=== PATIENT | male | born 1965 | race Hispanic/Latino ===

== ENCOUNTER 2022-08-31 09:19 | Day surgery (SDC) | payer BC ==
[2022-08-27 11:02] LABS: BASOPHILS % (AUTO) 0.4 % (0.0-5.0); EOSINOPHILS % (AUTO) 1.2 % (0.0-8.0); HEMATOCRIT 44.1 % (42-54); LYMPHOCYTES % (AUTO) 35.4 % (21.0-51.0); MEAN CORPUSCULAR HEMOGLOBIN 29.3 pg (27.0-33.0); MEAN CORPUSCULAR HGB CONC 32.7 g/dL (32.0-36.0); MEAN CORPUSCULAR VOLUME 89.8 fL (79-99); NEUTROPHILS % (AUTO) 54.7 % (40.0-77.0); PLATELET COUNT (AUTO) 207 K/uL (130-400); RED BLOOD CELL COUNT(AUTO) 4.91 MIL/uL (4.50-6.20); RED CELL DISTRIBUTION WIDTH 12.7 % (11.0-15.5); WHITE BLOOD COUNT (AUTO) 6.8 K/uL (4.8-10.8)
[2022-08-27 11:03] VITALS: BP 146/80
[2022-08-27 11:06] LABS: CREATININE 0.8 mg/dL (0.5-1.5); POTASSIUM 4.3 mmol/L (3.5-5.1)
[2022-08-27 11:26] LABS: B-TYPE NATRIURETIC PEPTIDE 9 pg/mL (0-100)
[2022-08-27 11:40] LABS: INR 0.93 (0.85-1.15); PROTHROMBIN TIME 9.9 SEC (9.6-11.6)
[2022-08-27 11:41] LABS: PARTIAL THROMBOPLASTIN TIME 29.6 SEC (26.3-35.5)
[~2022-08-31] VITALS: Ht 175.3 cm; Wt 100.7 kg
[2022-08-31] VITALS (8 sets, daily range): BP systolic 134–153; BP diastolic 74–86
[~2022-08-31 09:19] MED LIST: 0.9% NACL 500ML IV.SOLN 500 ML IV SCH
[2022-08-31] MEDS ORDERED: LISI20TA24 PO (11:12)
[2022-08-31] MEDS ORDERED: ASPI-1005 PO (11:12)
[2022-08-31] MEDS ORDERED: ROSU20TA73 PO (11:12)
[2022-08-31] MEDS ORDERED: CARV3.12 PO (11:12)
[2022-08-31] MEDS ORDERED: LIDOCAINE HCL 400MG/20ML VIAL ONE (12:54)
[2022-08-31] MEDS ORDERED: NITROGLYCERIN 50MG VIAL ONE (12:54)
[2022-08-31] MEDS ORDERED: IOHEXOL 350 MG/ML 100ML INFUS..BTL IV ONE ×2 (12:54→14:23)
[2022-08-31] MEDS ORDERED: HEPARIN 10,000 UNIT/10ML (1,000 UNIT/ML) VIAL ONE ×2 (12:54→14:12)
[2022-08-31] MEDS ORDERED: MIDAZOLAM HCL 1 MG/ML 2ML VIAL ONE (12:55)
[2022-08-31] MEDS ORDERED: FENTANYL CITRATE PF 50 MCG/1 ML 2ML VIAL ONE (12:55)
[2022-08-31] MEDS ORDERED: NICARDIPINE 25MG INJ IV ONE (13:01)
[2022-08-31] MEDS ORDERED: ASPIRIN 325MG EC TAB PO ONE (14:07)
[2022-08-31] MEDS ORDERED: CLOPIDOGREL 300MG TAB ONE (14:07)
[2022-08-31] MEDS ORDERED: 0.9%NACL 1000ML 1,000 ML IV SCH (15:00)
[2022-08-31] MEDS ORDERED: ACETAMINOPHEN 325 MG TAB ONE (16:55)
== END 2022-08-31 18:09 | disposition home or self-care (01) ==
LOC: DAH 09:19
PROVIDERS: ATTEND Internal Medicine Cardiovascular Disease
DX: I25.119 Atherosclerotic heart disease of native coronary artery with unspecified angina pectoris (principal); I25.82 Chronic total occlusion of coronary artery; I10 Essential (primary) hypertension; E78.5 Hyperlipidemia, unspecified; F17.210 Nicotine dependence, cigarettes, uncomplicated; E11.9 Type 2 diabetes mellitus without complications; I71.9 Aortic aneurysm of unspecified site, without rupture; Z82.49 Family history of ischemic heart disease and other diseases of the circulatory system; Z83.3 Family history of diabetes mellitus; Z72.89 Other problems related to lifestyle; Z79.82 Long term (current) use of aspirin; Z79.899 Other long term (current) drug therapy; Z86.16 Personal history of COVID-19; Z88.8 Allergy status to other drugs, medicaments and biological substances; Z79.01 Long term (current) use of anticoagulants
CPT/HCPCS: 80048; 83880; 85025; 85610; 85730; 36415; 71045; 93005 ×3; 93458; 93571; 85347; C9600; C1769 ×3; C1887 ×2; C1894 ×2; C1874; C1725 ×2; Q9965 ×2; J7040; J3010; J3490 ×3; J1644 ×4; J2250; Q9967; A4215; A4222; A4221; A4663; A4216; A4606; A4223 ×3; 99156; 99157

== ENCOUNTER 2022-09-02 17:52 | Observation (INO) | payer BC ==
[~2022-09-02] VITALS: Ht 175.3 cm; Wt 97.8 kg
[~2022-09-02 17:52] MED LIST changes: -0.9% NACL 500ML IV.SOLN 500 ML IV SCH; +ASPI-1005 PO; +CARV3.12 PO; +LISI20TA24 PO; +ROSU20TA31 PO
[2022-09-02 18:20] LABS: BASOPHILS % (AUTO) 0.5 % (0.0-5.0); EOSINOPHILS % (AUTO) 1.4 % (0.0-8.0); HEMATOCRIT 41.1 % (42-54); LYMPHOCYTES % (AUTO) 36.9 % (21.0-51.0); MEAN CORPUSCULAR HEMOGLOBIN 30.4 pg (27.0-33.0); MEAN CORPUSCULAR HGB CONC 34.8 g/dL (32.0-36.0); MEAN CORPUSCULAR VOLUME 87.3 fL (79-99); MONOCYTES % (AUTO) 9.9 % (3.0-13.0); NEUTROPHILS % (AUTO) 50.8 % (40.0-77.0); PLATELET COUNT (AUTO) 212 K/uL (130-400); RED BLOOD CELL COUNT(AUTO) 4.71 MIL/uL (4.50-6.20); RED CELL DISTRIBUTION WIDTH 12.6 % (11.0-15.5); WHITE BLOOD COUNT (AUTO) 6.3 K/uL (4.8-10.8)
[2022-09-02 18:31] LABS: CREATININE 0.9 mg/dL (0.5-1.5)
[2022-09-02 18:40] LABS: ALBUMIN 3.8 g/dL (3.5-5.0)
[2022-09-02 18:55] LABS: TOTAL PROTEIN, SERUM 7.2 g/dL (6.0-8.3)
[2022-09-02] MEDS ORDERED: ONDANSETRON 4MG INJ IVP ONE (19:30)
[2022-09-02] MEDS ORDERED: MORPHINE 2 MG SYG IVP ONE (19:30)
[2022-09-02] MEDS ORDERED: HEPARIN 25,000 UNITS/250ML D5W 250 ML IV SCH (19:30)
[2022-09-02 20:44] LABS: INR 0.93 (0.85-1.15)
[2022-09-02 20:46] LABS: PARTIAL THROMBOPLASTIN TIME 30.6 SEC (26.3-35.5)
[2022-09-02] MEDS ORDERED: HEPARIN 5,000 UNIT VIAL ONE (21:17)
[2022-09-02] MEDS ORDERED: MORPHINE 2 MG SYG IVP PRN (22:00)
[2022-09-02] MEDS ORDERED: HYDRALAZINE 20MG/ML VIAL IV PRN (22:00)
[2022-09-02] MEDS ORDERED: HYDROCODONE/ACETAMINOPHEN 5/325 MG TAB PO PRN (22:00)
[2022-09-02] MEDS ORDERED: LABETALOL 20MG SYG IV PRN (22:00)
[2022-09-02] MEDS ORDERED: ACETAMINOPHEN 325 MG TAB PO PRN (22:00)
[2022-09-03] VITALS (7 sets, daily range): BP systolic 115–155; BP diastolic 57–94
[2022-09-03] MEDS ORDERED: CLOP75TA32 PO (02:04)
[2022-09-03] MEDS: CLOPIDOGREL 75MG TAB PO SCH (10:00)
[2022-09-03] MEDS: ASPIRIN 81 MG EC TAB PO SCH (10:00)
[2022-09-03] MEDS ORDERED: HEPARIN 5,000 UNIT VIAL IV SCH (17:45)
[2022-09-03] MEDS: CARVEDILOL 3.125 MG TABLET PO SCH (20:56)
[2022-09-03] MEDS ORDERED: ATORVASTATIN 40 MG TABLET PO SCH (21:00)
[2022-09-04 03:53] LABS: HEMATOCRIT 44.3 % (42-54); MEAN CORPUSCULAR HEMOGLOBIN 29.1 pg (27.0-33.0); MEAN CORPUSCULAR VOLUME 88.2 fL (79-99); RED BLOOD CELL COUNT(AUTO) 5.02 MIL/uL (4.50-6.20); RED CELL DISTRIBUTION WIDTH 12.5 % (11.0-15.5)
[2022-09-04 04:13] LABS: MAGNESIUM 1.9 mg/dL (1.80-2.40); POTASSIUM 4.3 mmol/L (3.5-5.1)
[2022-09-04 05:39] VITALS: BP 141/80
[2022-09-04 07:00] VITALS: BP 144/84
[2022-09-04] MEDS: ASPIRIN 81 MG EC TAB PO SCH (07:48)
[2022-09-04] MEDS: CARVEDILOL 3.125 MG TABLET PO SCH (07:48)
[2022-09-04] MEDS: CLOPIDOGREL 75MG TAB PO SCH (07:49)
[2022-09-04] MEDS ORDERED: ISOSORBIDE MONO 30MG SR TAB PO ONE (10:00)
[2022-09-04 11:00] VITALS: BP 128/68
[2022-09-05] MEDS ORDERED: ISOSORBIDE MONO 30MG SR TAB PO SCH (09:00)
== END 2022-09-04 13:00 | disposition home or self-care (01) ==
LOC: EDH 17:52 → EDHIP 21:55 → 2AH 09-03 01:44
PROVIDERS: ADMIT Internal Medicine; ATTEND Internal Medicine
DX: I21.4 Non-ST elevation (NSTEMI) myocardial infarction (principal); I25.10 Atherosclerotic heart disease of native coronary artery without angina pectoris; I10 Essential (primary) hypertension; E78.00 Pure hypercholesterolemia, unspecified; F17.200 Nicotine dependence, unspecified, uncomplicated; R74.8 Abnormal levels of other serum enzymes; Z79.899 Other long term (current) drug therapy; Z95.5 Presence of coronary angioplasty implant and graft; Z63.4 Disappearance and death of family member; Z79.82 Long term (current) use of aspirin; Z98.890 Other specified postprocedural states
CPT/HCPCS: 96365; 96366 ×3; 82550; 83874; 84484 ×3; 80053; 85025; 85610; 85730 ×4; 36415 ×3; 71045; 99291; 93005 ×2; 96376 ×2; 83735; 80048; 85027; G0378 ×39; J1644 ×3; 96375

== ENCOUNTER 2022-09-17 05:58 | Day surgery (SDC) | payer BC ==
[2022-09-15 12:37] LABS: BASOPHILS % (AUTO) 0.5 % (0.0-5.0); EOSINOPHILS % (AUTO) 2.8 % (0.0-8.0); HEMATOCRIT 42.2 % (42-54); LYMPHOCYTES % (AUTO) 31.9 % (21.0-51.0); MEAN CORPUSCULAR HEMOGLOBIN 29.4 pg (27.0-33.0); MEAN CORPUSCULAR HGB CONC 33.4 g/dL (32.0-36.0); MEAN CORPUSCULAR VOLUME 87.9 fL (79-99); MONOCYTES % (AUTO) 9.8 % (3.0-13.0); NEUTROPHILS % (AUTO) 54.6 % (40.0-77.0); PLATELET COUNT (AUTO) 216 K/uL (130-400); RED CELL DISTRIBUTION WIDTH 12.5 % (11.0-15.5); WHITE BLOOD COUNT (AUTO) 5.7 K/uL (4.8-10.8)
[2022-09-15 12:53] LABS: CREATININE 0.7 mg/dL (0.5-1.5); POTASSIUM 4.5 mmol/L (3.5-5.1)
[2022-09-15 12:57] LABS: INR 0.93 (0.85-1.15); PROTHROMBIN TIME 9.8 SEC (9.6-11.6)
[2022-09-15 12:58] LABS: PARTIAL THROMBOPLASTIN TIME 29.6 SEC (26.3-35.5)
[2022-09-15 13:20] VITALS: BP 150/79
[~2022-09-17] VITALS: Ht 175.3 cm; Wt 100.0 kg
[2022-09-17] VITALS (9 sets, daily range): BP systolic 142–156; BP diastolic 68–81
[~2022-09-17 05:58] MED LIST changes: +0.9% NACL 500ML IV.SOLN 500 ML IV SCH; +CLOP75TA32 PO; -ROSU20TA31 PO; +ROSU20TA73 PO
[2022-09-17] MEDS ORDERED: 0.9%NACL 1000ML 1,000 ML IV ONE (06:22)
[2022-09-17] MEDS ORDERED: ISOS30TA92 PO (07:05)
[2022-09-17] MEDS ORDERED: HEPARIN 10,000 UNIT/10ML (1,000 UNIT/ML) VIAL ONE (07:19)
[2022-09-17] MEDS ORDERED: LIDOCAINE HCL 400MG/20ML VIAL ONE (07:19)
[2022-09-17] MEDS ORDERED: MIDAZOLAM HCL 1 MG/ML 2ML VIAL ONE ×2 (07:19→09:15)
[2022-09-17] MEDS ORDERED: NITROGLYCERIN 50MG VIAL ONE (07:19)
[2022-09-17] MEDS ORDERED: FENTANYL CITRATE PF 50 MCG/1 ML 2ML VIAL ONE ×2 (07:19→09:52)
[2022-09-17] MEDS ORDERED: NICARDIPINE 25MG INJ IV ONE (07:19)
[2022-09-17] MEDS ORDERED: IOHEXOL 350 MG/ML 100ML INFUS..BTL IV ONE (07:19)
[2022-09-17] MEDS ORDERED: IOHEXOL-350 75 ML VIAL IV ONE (09:23)
[2022-09-17] MEDS ORDERED: CLOPIDOGREL 300MG TAB ONE (10:29)
[2022-09-17] MEDS ORDERED: 0.9%NACL 1000ML 1,000 ML IV SCH (10:30)
== END 2022-09-17 14:40 | disposition home or self-care (01) ==
LOC: DAH 05:58
PROVIDERS: ATTEND Internal Medicine Cardiovascular Disease
DX: I25.119 Atherosclerotic heart disease of native coronary artery with unspecified angina pectoris (principal); I10 Essential (primary) hypertension; E78.5 Hyperlipidemia, unspecified; I71.9 Aortic aneurysm of unspecified site, without rupture; F17.210 Nicotine dependence, cigarettes, uncomplicated; I44.0 Atrioventricular block, first degree; Z86.16 Personal history of COVID-19; Z79.899 Other long term (current) drug therapy; Z98.890 Other specified postprocedural states; Z72.89 Other problems related to lifestyle; Z82.49 Family history of ischemic heart disease and other diseases of the circulatory system; Z83.3 Family history of diabetes mellitus; Z95.5 Presence of coronary angioplasty implant and graft; Z79.82 Long term (current) use of aspirin; Z79.01 Long term (current) use of anticoagulants
CPT/HCPCS: 80048; 85025; 85610; 85730; 36415; 71045; 93005 ×2; 85347 ×3; 82948 ×2; 92920; 93458; C9600; C1887 ×2; C1769 ×3; C1894 ×3; C1760; C1874 ×2; C1725 ×3; J3010 ×2; J3490 ×3; J7030; J1644 ×3; J2250 ×2; Q9967 ×2; A4215; A4222; A4221; A4663; A4216; A4606; C9601; Q9965 ×2; A4223 ×3; 96360; 96361; 96375; 99156; 99157

== ENCOUNTER → 2022-09-23 | Outpatient (CLI) | payer BC ==
[~2022-09-23] MED LIST changes: -0.9% NACL 500ML IV.SOLN 500 ML IV SCH; +ISOS30TA92 PO
== END | disposition home or self-care (01) ==
LOC: SHCH 12:39
PROVIDERS: ATTEND Internal Medicine Cardiovascular Disease
DX: M79.81 Nontraumatic hematoma of soft tissue (principal)
CPT/HCPCS: 93971

== ENCOUNTER 2023-03-22 16:18 | Observation (INO) | payer BC ==
[~2023-03-22] VITALS: Ht 175.3 cm; Wt 99.3 kg
[2023-03-22 16:58] LABS: BASOPHILS # (AUTO) 0.04 K/uL (0.00-0.20); BASOPHILS % (AUTO) 0.6 % (0.0-5.0); EOSINOPHILS # (AUTO) 0.16 K/uL (0.00-0.70); EOSINOPHILS % (AUTO) 2.4 % (0.0-8.0); HEMATOCRIT 42.3 % (42-54); IMMATURE GRANULOCYTE ABSOLUTE 0.03 K/uL (0-1); LYMPHOCYTES # (AUTO) 1.5 K/uL (1.0-4.8); LYMPHOCYTES % (AUTO) 22.1 % (21.0-51.0); MEAN CORPUSCULAR HEMOGLOBIN 29.9 pg (27.0-33.0); MEAN CORPUSCULAR VOLUME 87.8 fL (79-99); MONOCYTES # (AUTO) 0.7 K/uL (0.1-1.0); MONOCYTES % (AUTO) 9.9 % (3.0-13.0); NEUTROPHILS # (AUTO) 4.2 K/uL (1.8-7.7); NEUTROPHILS % (AUTO) 64.5 % (40.0-77.0); PLATELET COUNT (AUTO) 197 K/uL (130-400); RED BLOOD CELL COUNT(AUTO) 4.82 MIL/uL (4.50-6.20); RED CELL DISTRIBUTION WIDTH 13.4 % (11.0-15.5); WHITE BLOOD COUNT (AUTO) 6.6 K/uL (4.8-10.8)
[2023-03-22 17:10] LABS: CREATININE 0.8 mg/dL (0.5-1.5); POTASSIUM 4.1 mmol/L (3.5-5.1)
[2023-03-22 17:15] LABS: ALBUMIN 3.5 g/dL (3.5-5.0); BILIRUBIN,TOTAL 0.4 mg/dL (0.2-1.0); TOTAL PROTEIN, SERUM 7.1 g/dL (6.0-8.3)
[2023-03-22] MEDS ORDERED: LABETALOL 20MG SYG IV ONE (17:30)
[2023-03-22] MEDS ORDERED: LACTULOSE 20 GM/30 ML UDCUP PO PRN (19:30)
[2023-03-22] MEDS ORDERED: DEXTROSE 50%-WATER 50 ML DISP.SYRIN IV PRN (19:30)
[2023-03-22] MEDS ORDERED: ASPIRIN 81MG CHEW TAB PO ONE (19:30)
[2023-03-22] MEDS ORDERED: POTASSIUM CHLORIDE 10% ELIXIR 20 MEQ/15 ML UDCUP PO PRN (19:30)
[2023-03-22] MEDS ORDERED: HYDRALAZINE 20MG/ML VIAL IV PRN (19:30)
[2023-03-22] MEDS ORDERED: ONDANSETRON 4MG INJ IVP PRN (19:30)
[2023-03-22] MEDS ORDERED: GLUCAGON 1MG KIT 1 MG ML IM PRN (19:30)
[2023-03-22] MEDS ORDERED: DOCUSATE SODIUM 100 MG CAP PO PRN (19:30)
[2023-03-22] MEDS ORDERED: KCL 20 MEQ ERTAB PO PRN (19:30)
[2023-03-22] MEDS ORDERED: ALBUTEROL 0.083% 2.5 MG/3 ML INH IH PRN (19:30)
[2023-03-22] MEDS ORDERED: NITROGLYCERIN 0.4 MG SL TAB SL PRN (19:30)
[2023-03-22 20:01] LABS: INR < 0.93 (0.85-1.15); PROTHROMBIN TIME 9.8 SEC (9.6-11.6)
[2023-03-22 20:03] LABS: PARTIAL THROMBOPLASTIN TIME 28.8 SEC (26.3-35.5)
[2023-03-22] MEDS: INSULIN HUMULIN R 100 UNIT/ML 3ML SQ SCH (21:00)
[2023-03-22] MEDS: ATORVASTATIN 40 MG TABLET PO SCH (21:34)
[2023-03-22] MEDS: PANTOPRAZOLE 40 MG TAB DR PO SCH (21:34)
[2023-03-22] MEDS: 0.9%NACL 1000ML 1,000 ML IV SCH (21:35)
[2023-03-23 01:33] LABS: BASOPHILS # (AUTO) 0.04 K/uL (0.00-0.20); BASOPHILS % (AUTO) 0.7 % (0.0-5.0); EOSINOPHILS # (AUTO) 0.12 K/uL (0.00-0.70); EOSINOPHILS % (AUTO) 2.1 % (0.0-8.0); HEMATOCRIT 42.7 % (42-54); IMMATURE GRANULOCYTE ABSOLUTE 0.01 K/uL (0-1); LYMPHOCYTES # (AUTO) 1.9 K/uL (1.0-4.8); LYMPHOCYTES % (AUTO) 33.3 % (21.0-51.0); MEAN CORPUSCULAR HEMOGLOBIN 29.6 pg (27.0-33.0); MEAN CORPUSCULAR HGB CONC 33.7 g/dL (32.0-36.0); MEAN CORPUSCULAR VOLUME 87.7 fL (79-99); MONOCYTES # (AUTO) 0.6 K/uL (0.1-1.0); MONOCYTES % (AUTO) 11.1 % (3.0-13.0); NEUTROPHILS % (AUTO) 52.6 % (40.0-77.0); PLATELET COUNT (AUTO) 184 K/uL (130-400); RED BLOOD CELL COUNT(AUTO) 4.87 MIL/uL (4.50-6.20); RED CELL DISTRIBUTION WIDTH 13.4 % (11.0-15.5); WHITE BLOOD COUNT (AUTO) 5.7 K/uL (4.8-10.8)
[2023-03-23 01:57] LABS: CREATININE 0.8 mg/dL (0.5-1.5); PHOSPHORUS 2.9 mg/dL (2.5-4.9); POTASSIUM 3.8 mmol/L (3.5-5.1); THYROID STIMULATING HORMONE 3.02 uIU/mL (0.36-3.74)
[2023-03-23 02:03] LABS: HEMOGLOBIN A1C 6.3 % (4.0-6.0)
[2023-03-23 02:14] LABS: B-TYPE NATRIURETIC PEPTIDE 15 pg/mL (0-100)
[2023-03-23] MEDS: 0.9%NACL 1000ML 1,000 ML IV SCH ×2 (05:26→15:17)
[2023-03-23] MEDS: INSULIN HUMULIN R 100 UNIT/ML 3ML SQ SCH ×4 (07:30→21:00)
[2023-03-23] MEDS: PANTOPRAZOLE 40 MG TAB DR PO SCH (08:20)
[2023-03-23] MEDS: ASPIRIN 81MG CHEW TAB PO SCH ×2 (08:20→09:00)
[2023-03-23] MEDS: ENOXAPARIN SODIUM 40 MG/0.4 ML SYRINGE SQ SCH (08:21)
[2023-03-23] MEDS ORDERED: NON-FORMULARY MEDICATION 1 EACH (Rosuvastatin Calcium 20 MG) PO SCH (09:00)
[2023-03-23] MEDS: LISINOPRIL 20 MG TABLET PO SCH (09:46)
[2023-03-23] MEDS: CARVEDILOL 3.125 MG TABLET PO SCH ×2 (09:49→21:05)
[2023-03-23] MEDS ORDERED: ASPI-1443 PO (11:41)
[2023-03-23] MEDS ORDERED: DAPA10TA PO (11:41)
[2023-03-23] MEDS ORDERED: ICOS1CAP PO (11:41)
[2023-03-23] MEDS ORDERED: RANO500T2 PO (11:41)
[2023-03-23] MEDS ORDERED: 0.9% NACL 500ML IV.SOLN 500 ML IV SCH (13:30)
[2023-03-23 16:00] VITALS: BP 143/83; PULSE 69; RESP 16
[2023-03-23 18:22] VITALS: O2SAT 94
[2023-03-23 19:57] VITALS: BP 116/56; PULSE 69; RESP 19
[2023-03-23 20:40] VITALS: O2SAT 98
[2023-03-23] MEDS: ISOSORBIDE MONO 30MG SR TAB PO SCH (21:04)
[2023-03-23] MEDS: ATORVASTATIN 40 MG TABLET PO SCH (21:04)
[2023-03-23 23:34] VITALS: BP 130/77; PULSE 66; RESP 18
[2023-03-24] VITALS (8 sets, daily range): BP systolic 119–152; BP diastolic 60–76; PULSE 60–71; RESP 17–20; TEMP 97.5; O2SAT 98
[2023-03-24 01:14] LABS: AMPHET/METH SCREEN,URINE NEGATIVE (NEGATIVE); BARBITURATE SCREEN, URINE NEGATIVE (NEGATIVE); BENZODIAZEPINES SCREEN,URINE NEGATIVE (NEGATIVE); CANNABINOID SCREEN,URINE NEGATIVE (NEGATIVE); COCAINE SCREEN,URINE POSITIVE (NEGATIVE); OPIATE SCREEN,URINE NEGATIVE (NEGATIVE); PHENCYCLIDINE SCREEN,URINE NEGATIVE (NEGATIVE)
[2023-03-24] MEDS: 0.9%NACL 1000ML 1,000 ML IV SCH ×2 (01:30→20:31)
[2023-03-24 04:31] LABS: BASOPHILS # (AUTO) 0.04 K/uL (0.00-0.20); BASOPHILS % (AUTO) 0.8 % (0.0-5.0); EOSINOPHILS # (AUTO) 0.14 K/uL (0.00-0.70); EOSINOPHILS % (AUTO) 2.6 % (0.0-8.0); HEMATOCRIT 40.5 % (42-54); IMMATURE GRANULOCYTE ABSOLUTE 0.02 K/uL (0-1); LYMPHOCYTES # (AUTO) 1.6 K/uL (1.0-4.8); LYMPHOCYTES % (AUTO) 30.2 % (21.0-51.0); MEAN CORPUSCULAR HEMOGLOBIN 29.3 pg (27.0-33.0); MEAN CORPUSCULAR HGB CONC 33.1 g/dL (32.0-36.0); MEAN CORPUSCULAR VOLUME 88.6 fL (79-99); MONOCYTES # (AUTO) 0.6 K/uL (0.1-1.0); MONOCYTES % (AUTO) 11.5 % (3.0-13.0); NEUTROPHILS # (AUTO) 2.9 K/uL (1.8-7.7); NEUTROPHILS % (AUTO) 54.5 % (40.0-77.0); PLATELET COUNT (AUTO) 184 K/uL (130-400); RED BLOOD CELL COUNT(AUTO) 4.57 MIL/uL (4.50-6.20); RED CELL DISTRIBUTION WIDTH 13.6 % (11.0-15.5); WHITE BLOOD COUNT (AUTO) 5.3 K/uL (4.8-10.8)
[2023-03-24 04:51] LABS: ALBUMIN 3.1 g/dL (3.5-5.0); BILIRUBIN,TOTAL 0.2 mg/dL (0.2-1.0); CREATININE 0.8 mg/dL (0.5-1.5); MAGNESIUM 1.9 mg/dL (1.80-2.40); POTASSIUM 4.2 mmol/L (3.5-5.1); TOTAL PROTEIN, SERUM 6.3 g/dL (6.0-8.3)
[2023-03-24] MEDS: INSULIN HUMULIN R 100 UNIT/ML 3ML SQ SCH ×4 (05:26→20:28)
[2023-03-24] MEDS: MAGNESIUM 2GM PREMIX 50ML 50 ML IV PRN (05:58)
[2023-03-24] MEDS: ASPIRIN 81MG CHEW TAB PO SCH ×2 (09:00→10:06)
[2023-03-24] MEDS: ACETAMINOPHEN 325 MG TAB PO PRN (09:56)
[2023-03-24] MEDS: PANTOPRAZOLE 40 MG TAB DR PO SCH (09:57)
[2023-03-24] MEDS: CARVEDILOL 3.125 MG TABLET PO SCH ×2 (09:57→20:30)
[2023-03-24] MEDS: LISINOPRIL 20 MG TABLET PO SCH (09:57)
[2023-03-24] MEDS: ENOXAPARIN SODIUM 40 MG/0.4 ML SYRINGE SQ SCH (09:58)
[2023-03-24] MEDS: ISOSORBIDE MONO 30MG SR TAB PO SCH (20:30)
[2023-03-24] MEDS: ATORVASTATIN 40 MG TABLET PO SCH (20:30)
[2023-03-25] VITALS (15 sets, daily range): BP systolic 117–153; BP diastolic 61–87; PULSE 68–88; RESP 16–20; O2SAT 95
[2023-03-25 04:48] LABS: BASOPHILS # (AUTO) 0.03 K/uL (0.00-0.20); BASOPHILS % (AUTO) 0.5 % (0.0-5.0); EOSINOPHILS # (AUTO) 0.05 K/uL (0.00-0.70); EOSINOPHILS % (AUTO) 0.8 % (0.0-8.0); HEMATOCRIT 39.8 % (42-54); IMMATURE GRANULOCYTE ABSOLUTE 0.03 K/uL (0-1); LYMPHOCYTES # (AUTO) 1.5 K/uL (1.0-4.8); LYMPHOCYTES % (AUTO) 25.4 % (21.0-51.0); MEAN CORPUSCULAR HEMOGLOBIN 29.7 pg (27.0-33.0); MEAN CORPUSCULAR HGB CONC 33.4 g/dL (32.0-36.0); MEAN CORPUSCULAR VOLUME 88.8 fL (79-99); MONOCYTES # (AUTO) 0.7 K/uL (0.1-1.0); MONOCYTES % (AUTO) 10.9 % (3.0-13.0); NEUTROPHILS # (AUTO) 3.7 K/uL (1.8-7.7); NEUTROPHILS % (AUTO) 61.9 % (40.0-77.0); PLATELET COUNT (AUTO) 180 K/uL (130-400); RED BLOOD CELL COUNT(AUTO) 4.48 MIL/uL (4.50-6.20); RED CELL DISTRIBUTION WIDTH 13.5 % (11.0-15.5)
[2023-03-25 05:06] LABS: INR < 0.93 (0.85-1.15); PROTHROMBIN TIME 10.2 SEC (9.6-11.6)
[2023-03-25 05:07] LABS: PARTIAL THROMBOPLASTIN TIME 29.6 SEC (26.3-35.5)
[2023-03-25 05:08] LABS: ALBUMIN 3.2 g/dL (3.5-5.0); BILIRUBIN,TOTAL 0.4 mg/dL (0.2-1.0); CREATININE 0.9 mg/dL (0.5-1.5); MAGNESIUM 1.8 mg/dL (1.80-2.40); POTASSIUM 3.9 mmol/L (3.5-5.1); TOTAL PROTEIN, SERUM 6.5 g/dL (6.0-8.3)
[2023-03-25] MEDS: MAGNESIUM 2GM PREMIX 50ML 50 ML IV PRN (05:43)
[2023-03-25] MEDS: INSULIN HUMULIN R 100 UNIT/ML 3ML SQ SCH ×4 (05:48→19:54)
[2023-03-25] MEDS: ACETAMINOPHEN 325 MG TAB PO PRN ×2 (05:48→20:15)
[2023-03-25] MEDS: 0.9%NACL 1000ML 1,000 ML IV SCH ×2 (05:49→17:30)
[2023-03-25] MEDS: CARVEDILOL 3.125 MG TABLET PO SCH ×2 (09:00→20:15)
[2023-03-25] MEDS: PANTOPRAZOLE 40 MG TAB DR PO SCH (09:00)
[2023-03-25] MEDS: ENOXAPARIN SODIUM 40 MG/0.4 ML SYRINGE SQ SCH (09:00)
[2023-03-25] MEDS: ASPIRIN 81MG CHEW TAB PO SCH (09:00)
[2023-03-25] MEDS: LISINOPRIL 20 MG TABLET PO SCH (09:00)
[2023-03-25] MEDS: CLOPIDOGREL 75MG TAB PO SCH (09:00)
[2023-03-25] MEDS ORDERED: NITROGLYCERIN 50MG VIAL ONE (15:55)
[2023-03-25] MEDS ORDERED: NICARDIPINE 25MG INJ IV ONE (15:55)
[2023-03-25] MEDS ORDERED: IOHEXOL-350 75 ML VIAL IV ONE (15:55)
[2023-03-25] MEDS ORDERED: HEPARIN 10,000 UNIT/10ML (1,000 UNIT/ML) VIAL ONE (15:55)
[2023-03-25] MEDS ORDERED: LIDOCAINE HCL 400MG/20ML VIAL ONE (15:55)
[2023-03-25] MEDS ORDERED: FENTANYL CITRATE PF 50 MCG/1 ML 2ML VIAL ONE (16:14)
[2023-03-25] MEDS ORDERED: MIDAZOLAM HCL 1 MG/ML 2ML VIAL ONE (16:15)
[2023-03-25] MEDS ORDERED: IOHEXOL-350 50ML VIAL IV ONE (16:38)
[2023-03-25] MEDS ORDERED: DEXTROSE 50%-WATER 50 ML DISP.SYRIN IV PRN (17:30)
[2023-03-25] MEDS ORDERED: 0.9%NACL 1000ML 1,000 ML IV SCH (17:30)
[2023-03-25] MEDS ORDERED: GLUCAGON 1MG KIT 1 MG ML IM PRN (17:30)
[2023-03-25] MEDS: ISOSORBIDE MONO 30MG SR TAB PO SCH (20:15)
[2023-03-25] MEDS: ATORVASTATIN 40 MG TABLET PO SCH (20:15)
[2023-03-26] MEDS: 0.9%NACL 1000ML 1,000 ML IV SCH (02:47)
[2023-03-26 04:00] VITALS: BP 112/51; PULSE 78; RESP 18
[2023-03-26 05:39] LABS: BASOPHILS # (AUTO) 0.03 K/uL (0.00-0.20); BASOPHILS % (AUTO) 0.6 % (0.0-5.0); EOSINOPHILS # (AUTO) 0.06 K/uL (0.00-0.70); EOSINOPHILS % (AUTO) 1.2 % (0.0-8.0); HEMATOCRIT 44.3 % (42-54); IMMATURE GRANULOCYTE ABSOLUTE 0.02 K/uL (0-1); LYMPHOCYTES # (AUTO) 1.4 K/uL (1.0-4.8); LYMPHOCYTES % (AUTO) 27.6 % (21.0-51.0); MEAN CORPUSCULAR HEMOGLOBIN 29.5 pg (27.0-33.0); MEAN CORPUSCULAR HGB CONC 31.4 g/dL (32.0-36.0); MEAN CORPUSCULAR VOLUME 94.1 fL (79-99); MONOCYTES # (AUTO) 0.8 K/uL (0.1-1.0); MONOCYTES % (AUTO) 14.8 % (3.0-13.0); NEUTROPHILS # (AUTO) 2.9 K/uL (1.8-7.7); NEUTROPHILS % (AUTO) 55.4 % (40.0-77.0); PLATELET COUNT (AUTO) 176 K/uL (130-400); RED BLOOD CELL COUNT(AUTO) 4.71 MIL/uL (4.50-6.20); RED CELL DISTRIBUTION WIDTH 13.6 % (11.0-15.5); WHITE BLOOD COUNT (AUTO) 5.2 K/uL (4.8-10.8)
[2023-03-26 05:49] LABS: ALBUMIN 3.2 g/dL (3.5-5.0); BILIRUBIN,TOTAL 0.4 mg/dL (0.2-1.0); MAGNESIUM 1.9 mg/dL (1.80-2.40); POTASSIUM 4.1 mmol/L (3.5-5.1); TOTAL PROTEIN, SERUM 6.7 g/dL (6.0-8.3)
[2023-03-26] MEDS: INSULIN HUMULIN R 100 UNIT/ML 3ML SQ SCH ×2 (05:51→11:30)
[2023-03-26] MEDS: ACETAMINOPHEN 325 MG TAB PO PRN (07:25)
[2023-03-26] MEDS ORDERED: CLOP-31 PO (07:57)
[2023-03-26] MEDS ORDERED: ATOR40TA69 PO (07:57)
[2023-03-26] MEDS ORDERED: Isosorbide Mono 30MG Sr Tab PO (07:57)
[2023-03-26] MEDS ORDERED: PANT40TA PO (07:57)
[2023-03-26] MEDS ORDERED: LISI20TA24 PO (07:57)
[2023-03-26 08:00] VITALS: BP 127/65; PULSE 74; RESP 18
[2023-03-26] MEDS: PANTOPRAZOLE 40 MG TAB DR PO SCH (08:27)
[2023-03-26] MEDS: CARVEDILOL 3.125 MG TABLET PO SCH (08:29)
[2023-03-26] MEDS: ASPIRIN 81MG CHEW TAB PO SCH (08:29)
[2023-03-26] MEDS: CLOPIDOGREL 75MG TAB PO SCH (08:30)
[2023-03-26] MEDS: ENOXAPARIN SODIUM 40 MG/0.4 ML SYRINGE SQ SCH (08:34)
[2023-03-26] MEDS: LISINOPRIL 20 MG TABLET PO SCH (08:37)
[2023-03-26] MEDS ORDERED: ISOSORBIDE MONO 30MG SR TAB PO SCH (09:00)
[2023-03-26 12:00] VITALS: BP 104/61; PULSE 73; RESP 18
== END 2023-03-26 12:45 | disposition home or self-care (01) ==
LOC: EDH 16:18 → EDHIP 19:36 → 4BH 03-23 16:10
PROVIDERS: ADMIT Internal Medicine Critical Care Medicine; ATTEND Internal Medicine Critical Care Medicine
DX: R07.89 Other chest pain (principal); E87.1 Hypo-osmolality and hyponatremia; I25.110 Atherosclerotic heart disease of native coronary artery with unstable angina pectoris; I10 Essential (primary) hypertension; E78.5 Hyperlipidemia, unspecified; E66.9 Obesity, unspecified; E11.9 Type 2 diabetes mellitus without complications; E78.1 Pure hyperglyceridemia; I44.7 Left bundle-branch block, unspecified; I25.2 Old myocardial infarction; Z79.84 Long term (current) use of oral hypoglycemic drugs; Z87.01 Personal history of pneumonia (recurrent); Z95.5 Presence of coronary angioplasty implant and graft; Z86.16 Personal history of COVID-19; Z79.899 Other long term (current) drug therapy
CPT/HCPCS: 99285; 82550 ×3; 84484 ×4; 80053 ×4; 85025 ×5; 85610 ×2; 85730 ×2; 82948 ×15; 36415 ×5; 71045; 93005 ×2; 96372 ×2; 83036; 84443; 83735 ×4; 84100; 80061; 80048; 83880; 93306; 96365; 96366 ×2; 80305; 93454; G0378 ×86; J7030; J1650 ×2; J3475 ×2; C1769; C1894; J3010; J3490 ×3; J1644; J2250; Q9967 ×2; 99156; 99157

== ENCOUNTER 2023-09-23 10:15 | Observation (INO) | payer BC ==
[~2023-09-23] VITALS: Ht 175.3 cm; Wt 100.0 kg
[~2023-09-23 10:15] MED LIST changes: -ASPI-1005 PO; +ASPI-1443 PO; +ATOR40TA69 PO; +CLOP-31 PO; +ICOS1CAP PO; -ISOS30TA92 PO; +Isosorbide Mono 30MG Sr Tab PO; +PANT40TA PO; +RANO500T2 PO; -ROSU20TA73 PO
[2023-09-23 10:37] LABS: BASOPHILS # (AUTO) 0.04 K/uL (0.00-0.20); BASOPHILS % (AUTO) 0.7 % (0.0-5.0); EOSINOPHILS % (AUTO) 1.6 % (0.0-8.0); HEMATOCRIT 42.9 % (42-54); IMMATURE GRANULOCYTE ABSOLUTE 0.02 K/uL (0-1); LYMPHOCYTES # (AUTO) 1.6 K/uL (1.0-4.8); LYMPHOCYTES % (AUTO) 26.7 % (21.0-51.0); MEAN CORPUSCULAR VOLUME 88.1 fL (79-99); MONOCYTES # (AUTO) 0.5 K/uL (0.1-1.0); MONOCYTES % (AUTO) 8.3 % (3.0-13.0); NEUTROPHILS # (AUTO) 3.8 K/uL (1.8-7.7); NEUTROPHILS % (AUTO) 62.4 % (40.0-77.0); PLATELET COUNT (AUTO) 207 K/uL (130-400); RED BLOOD CELL COUNT(AUTO) 4.87 MIL/uL (4.50-6.20); WHITE BLOOD COUNT (AUTO) 6.1 K/uL (4.8-10.8)
[2023-09-23 10:49] LABS: CREATININE 0.8 mg/dL (0.5-1.3); POTASSIUM 3.9 mmol/L (3.5-5.1)
[2023-09-23 10:54] LABS: ALBUMIN 3.7 g/dL (3.5-5.0); BILIRUBIN,TOTAL 0.6 mg/dL (0.2-1.0); MAGNESIUM 1.7 mg/dL (1.80-2.40); TOTAL PROTEIN, SERUM 7.1 g/dL (6.0-8.3)
[2023-09-23] MEDS: ASPIRIN 325MG TAB PO ONE (11:11)
[2023-09-23 11:25] LABS: INR <= 0.93 (0.85-1.15); PROTHROMBIN TIME 10.3 SEC (9.6-11.6)
[2023-09-23 11:26] LABS: PARTIAL THROMBOPLASTIN TIME 27.9 SEC (26.3-35.5)
[2023-09-23 11:28] LABS: B-TYPE NATRIURETIC PEPTIDE 19 pg/mL (0-100)
[2023-09-23] MEDS ORDERED: CLOP75TA32 PO (12:13)
[2023-09-23] MEDS ORDERED: CARV3.12 PO (12:13)
[2023-09-23] MEDS ORDERED: ATOR40TA69 PO (12:13)
[2023-09-23] MEDS ORDERED: AEC81 PO (12:13)
[2023-09-23] MEDS ORDERED: RANO500T2 PO (12:13)
[2023-09-23] MEDS ORDERED: ICOS1CAP PO (12:13)
[2023-09-23] MEDS: ACETAMINOPHEN 325 MG TAB PO ONE (12:46)
[2023-09-23] MEDS ORDERED: POTASSIUM CHLORIDE 10% ELIXIR 20 MEQ/15 ML UDCUP PO PRN (13:00)
[2023-09-23] MEDS ORDERED: HYDRALAZINE 25MG TABLET PO PRN (13:00)
[2023-09-23] MEDS ORDERED: POTASSIUM CHLORIDE 20MEQ/100ML 100 ML IV PRN ×2 (13:00)
[2023-09-23] MEDS ORDERED: ACETAMINOPHEN 325 MG TAB PO PRN ×2 (13:00)
[2023-09-23] MEDS ORDERED: LACTULOSE 20 GM/30 ML UDCUP PO PRN (13:00)
[2023-09-23] MEDS ORDERED: GLUCAGON 1MG KIT 1 MG ML IM PRN (13:00)
[2023-09-23] MEDS ORDERED: DEXTROSE 50%-WATER 50 ML DISP.SYRIN IV PRN (13:00)
[2023-09-23 13:19] LABS: CHOLESTEROL 183 mg/dL (<200); HDL CHOLESTEROL 57 mg/dL (29-71); LDL DIRECT 101 mg/dL (0-99); TRIGLYCERIDES 289 mg/dL (30-200)
[2023-09-23] MEDS ORDERED: IOHEXOL-350 75 ML VIAL IV ONE (13:48)
[2023-09-23 14:16] LABS: APPEARANCE,URINE CLEAR (CLEAR); BILIRUBIN,URINE NEGATIVE (NEGATIVE); COLOR,URINE YELLOW (YELLOW); GLUCOSE, URINE (UA) 500 mg/dL (NEGATIVE); KETONES,URINE NEGATIVE (NEGATIVE); LEUKOCYTE ESTERASE ,URINE NEGATIVE Leu/uL (NEGATIVE); NITRATE,URINE NEGATIVE (NEGATIVE); OCCULT BLOOD,URINE NEGATIVE (NEGATIVE); PH,URINE 6.5 (5.0-8.0); PROTEIN,URINE 10 mg/dL (NEGATIVE); UROBILINOGEN,URINE 0.2 mg/dL (0.2-1.0)
[2023-09-23 14:18] LABS: ADD UA MICROSCOPIC YES
[2023-09-23 14:47] LABS: INFLUENZA TYPE A Negative For Type A (NEGATIVE); INFLUENZA TYPE B Negative For Type B (NEGATIVE)
[2023-09-23 14:52] LABS: AMPHET/METH SCREEN,URINE NEGATIVE (NEGATIVE); BARBITURATE SCREEN, URINE NEGATIVE (NEGATIVE); BENZODIAZEPINES SCREEN,URINE NEGATIVE (NEGATIVE); CANNABINOID SCREEN,URINE NEGATIVE (NEGATIVE); COCAINE SCREEN,URINE NEGATIVE (NEGATIVE); OPIATE SCREEN,URINE NEGATIVE (NEGATIVE); PHENCYCLIDINE SCREEN,URINE NEGATIVE (NEGATIVE)
[2023-09-23 15:03] LABS: MUCUS,URINE RARE LPF (None Seen); SQUAMOUS EPITHELIAL CELL,UR RARE /HPF (0-2)
[2023-09-23] MEDS: MAGNESIUM 2GM PREMIX 50ML 50 ML IV PRN (16:16)
[2023-09-23 16:45] VITALS: BP 152/93; PULSE 62; RESP 16; O2SAT 97
[2023-09-23] MEDS ORDERED: INSULIN HUMULIN R 100 UNIT/ML 3ML SQ SCH (18:00)
[2023-09-23 19:00] VITALS: BP 145/80; PULSE 65; RESP 20
[2023-09-23] MEDS: RANOLAZINE 500 MG TAB.SR.12H PO SCH (20:11)
[2023-09-23] MEDS: FAMOTIDINE 20MG TAB PO SCH (20:11)
[2023-09-23] MEDS: CARVEDILOL 3.125 MG TABLET PO SCH (20:11)
[2023-09-23] MEDS: (Icosapent Ethyl (Vascepa) 2 GM) PO SCH (20:13)
[2023-09-23] MEDS: ATORVASTATIN 40 MG TABLET PO SCH (20:13)
[2023-09-23 20:15] VITALS: O2SAT 98
[2023-09-23] MEDS: INSULIN HUMULIN R 100 UNIT/ML 3ML SQ SCH (20:33)
[2023-09-23 23:00] VITALS: BP 125/62; PULSE 57; RESP 20
[2023-09-24] VITALS (7 sets, daily range): BP systolic 134–157; BP diastolic 81–93; PULSE 56–69; RESP 18–20; O2SAT 97–100
[2023-09-24 03:58] LABS: BASOPHILS # (AUTO) 0.03 K/uL (0.00-0.20); BASOPHILS % (AUTO) 0.5 % (0.0-5.0); EOSINOPHILS # (AUTO) 0.17 K/uL (0.00-0.70); EOSINOPHILS % (AUTO) 2.7 % (0.0-8.0); HEMATOCRIT 42.1 % (42-54); IMMATURE GRANULOCYTE ABSOLUTE 0.03 K/uL (0-1); LYMPHOCYTES # (AUTO) 1.9 K/uL (1.0-4.8); LYMPHOCYTES % (AUTO) 30.5 % (21.0-51.0); MEAN CORPUSCULAR VOLUME 88.4 fL (79-99); MONOCYTES # (AUTO) 0.5 K/uL (0.1-1.0); NEUTROPHILS # (AUTO) 3.7 K/uL (1.8-7.7); NEUTROPHILS % (AUTO) 57.8 % (40.0-77.0); PLATELET COUNT (AUTO) 188 K/uL (130-400); RED BLOOD CELL COUNT(AUTO) 4.76 MIL/uL (4.50-6.20); RED CELL DISTRIBUTION WIDTH 13.1 % (11.0-15.5); WHITE BLOOD COUNT (AUTO) 6.4 K/uL (4.8-10.8)
[2023-09-24 04:13] LABS: HEMOGLOBIN A1C 6.8 % (4.0-6.0)
[2023-09-24 04:34] LABS: ALBUMIN 3.4 g/dL (3.5-5.0); BILIRUBIN,TOTAL 0.6 mg/dL (0.2-1.0); CREATININE 0.9 mg/dL (0.5-1.3); MAGNESIUM 1.7 mg/dL (1.80-2.40); POTASSIUM 3.6 mmol/L (3.5-5.1); TOTAL PROTEIN, SERUM 6.6 g/dL (6.0-8.3)
[2023-09-24] MEDS: KCL 20 MEQ ERTAB PO PRN (05:37)
[2023-09-24] MEDS: POLYETHYLENE GLYCOL 3350 17 GM POWD.PACK PO SCH (08:42)
[2023-09-24] MEDS: ASPIRIN 81 MG EC TAB PO SCH (08:44)
[2023-09-24] MEDS ORDERED: CLOPIDOGREL 75MG TAB PO SCH (09:00)
[2023-09-24] MEDS: REGADENOSON 0.4 MG/5 ML PF SYG IVP SCH (17:10)
[2023-09-24] MEDS: CLOPIDOGREL 75MG TAB PO ONE (18:30)
[2023-09-24] MEDS: ENOXAPARIN SODIUM 40 MG/0.4 ML SYRINGE SQ SCH (18:31)
[2023-09-25] VITALS: BP 124/63; PULSE 63; RESP 18
[2023-09-25 03:58] VITALS: BP 134/88; PULSE 58; RESP 16
[2023-09-25 05:18] LABS: BASOPHILS # (AUTO) 0.03 K/uL (0.00-0.20); BASOPHILS % (AUTO) 0.5 % (0.0-5.0); EOSINOPHILS # (AUTO) 0.15 K/uL (0.00-0.70); EOSINOPHILS % (AUTO) 2.3 % (0.0-8.0); HEMATOCRIT 44.1 % (42-54); IMMATURE GRANULOCYTE ABSOLUTE 0.05 K/uL (0-1); LYMPHOCYTES % (AUTO) 29.4 % (21.0-51.0); MEAN CORPUSCULAR HEMOGLOBIN 29.7 pg (27.0-33.0); MEAN CORPUSCULAR HGB CONC 33.3 g/dL (32.0-36.0); MEAN CORPUSCULAR VOLUME 89.1 fL (79-99); MONOCYTES # (AUTO) 0.6 K/uL (0.1-1.0); NEUTROPHILS # (AUTO) 3.9 K/uL (1.8-7.7); PLATELET COUNT (AUTO) 223 K/uL (130-400); RED BLOOD CELL COUNT(AUTO) 4.95 MIL/uL (4.50-6.20); RED CELL DISTRIBUTION WIDTH 13.2 % (11.0-15.5); WHITE BLOOD COUNT (AUTO) 6.6 K/uL (4.8-10.8)
[2023-09-25 05:35] LABS: CREATININE 0.9 mg/dL (0.5-1.3)
[2023-09-25 08:00] VITALS: BP 133/81; PULSE 64; RESP 16; O2SAT 100
[2023-09-25] MEDS: CLOPIDOGREL 75MG TAB PO SCH (11:58)
[2023-09-25 12:00] VITALS: BP 152/76; PULSE 68; RESP 18
[2023-09-25 16:00] VITALS: BP 134/77; PULSE 66; RESP 18
[2023-09-25] MEDS ORDERED: RANO500T2 PO (17:04)
[2023-09-25] MEDS ORDERED: RANOLAZINE 500 MG TAB.SR.12H PO SCH (21:00)
== END 2023-09-25 17:30 | disposition home or self-care (01) ==
LOC: EDH 10:15 → EDHIP 12:53 → 3CH 16:45
PROVIDERS: ADMIT Internal Medicine; ATTEND Internal Medicine
DX: R07.89 Other chest pain (principal); I25.119 Atherosclerotic heart disease of native coronary artery with unspecified angina pectoris; Z20.822 Contact with and (suspected) exposure to COVID-19; E11.65 Type 2 diabetes mellitus with hyperglycemia; E78.1 Pure hyperglyceridemia; E83.42 Hypomagnesemia; J10.1 Influenza due to other identified influenza virus with other respiratory manifestations; E83.52 Hypercalcemia; F19.90 Other psychoactive substance use, unspecified, uncomplicated; I10 Essential (primary) hypertension; I25.2 Old myocardial infarction; F17.200 Nicotine dependence, unspecified, uncomplicated; E66.9 Obesity, unspecified; Z87.01 Personal history of pneumonia (recurrent); Z95.5 Presence of coronary angioplasty implant and graft; Z68.32 Body mass index [BMI] 32.0-32.9, adult; Z79.899 Other long term (current) drug therapy; Z98.890 Other specified postprocedural states
CPT/HCPCS: 96376; 99285; 82550 ×4; 83735 ×3; 84484 ×5; 80061; 80053 ×2; 83880 ×2; 80305; 85025 ×3; 85378; 85610; 85730; 87804 ×2; 82948 ×7; 87426; 81001; 36415 ×3; 71045; 71270; 93005 ×2; 96372 ×2; 96365; 96366; 83036; 83690; 93017; 78452; 80048; G0378 ×49; J3475 ×2; Q9967; J1650 ×2; J2785; J1815; A9500 ×2; 96374